=== PATIENT | female | born 1970 | race Caucasian/White ===

== ENCOUNTER 2016-08-06 13:33 | Emergency (ER) | payer OTHER ==
[~2016-08-06] VITALS: Ht 165.1 cm; Wt 53.5 kg
[2016-08-06] MEDS ORDERED: BUPROPION XL300 MG ORAL (13:42)
[2016-08-06] MEDS ORDERED: CITALOPRAM HBR10 M1 ORAL (13:42)
[2016-08-06 13:54] VITALS: BP 118/68
--- NOTE | 2016-08-06 14:27 | Emergency Room Report ---
History of Present Illness General Chief Complaint: Pain Source: Patient Present Illness HPI 45-year-old female presents to emergency Department complaining of pain which is 2/10 in severity in the posterior left calf muscle times one day. Patient [place] felt a pop, pt reports instantly having pain and was unable to bear weight. Patient denies previous injury to this extremity denies bruising reports mild swelling reports tenderness to palpation in addition to pain with putting weight on the toe since she is able to walk with full weight on the heel. Denies numbness tingling or loss of sensation or gross motor movements of the extremities, incontinence of bowel or bladder. Denies CP, Palpitations, LOC, AMS, dizziness, Changes in Vision, Sensation, paresthesias, or a sudden severe headache. Allergies: Coded Allergies: No Known Allergies (Unverified , 08/06/16) Patient History Past Medical History: see triage record Past Surgical History: none Pertinent Family History: none Last Menstrual Period: about a week ago Now: No Immunizations: UTD Reviewed Nursing Documentation: PMH: Agreed, PSxH: Agreed Nursing Documentation-PMH Past Medical History: No History, Except For History Of Psychiatric Problem: Yes - Depression Review of Systems All Other Systems: negative except mentioned in HPI Physical Exam Vital Signs Date Time Temp Pulse Resp B/P Pulse Ox O2 Delivery O2 Flow Rate FiO2 08/06/16 13:37 98.1 66 16 118/68 98 Room Air Sp02 EP Interpretation: reviewed, normal General Appearance: no apparent distress, alert, GCS 15, non-toxic Head: normocephalic, atraumatic Eyes: bilateral eye PERRL, bilateral eye normal inspection ENT: hearing grossly normal, normal pharynx, no angioedema, normal voice Neck: full range of motion, supple/symm/no masses Respiratory: chest non-tender, lungs clear, normal breath sounds, speaking full sentences Cardiovascular #1: regular rate, rhythm, no edema Rectal: deferred Musculoskeletal: back normal, gait/station normal, normal range of motion, no calf tenderness, swelling - medial calf, no bruising or buldging noted. , other - pain exacerbated with plantar extension of the left foot, no exacerbation with plantar flexion against resistance. , tender - TTP to the left posterior medial calf Neurologic: alert, oriented x3, responsive, motor strength/tone normal, sensory intact, speech normal Psychiatric: judgement/insight normal, memory normal, mood/affect normal, no suicidal/homicidal ideation Reflexes: 4+ ankle (R), 4+ ankle (L) Skin: normal color, no rash, warm/dry, well hydrated Lymphatic: no adenopathy Medical Decision Making PA Attestation Dr. gonzalez is my supervising Physician whom patient management has been discussed with. Diagnostic Impression: Primary Impression: Gastrocnemius tear Qualified Codes: S86.812A - Strain of other muscle(s) and tendon(s) at lower leg level, left leg, initial encounter Additional Impression: Gastrocnemius strain Qualified Codes: S86.112A - Strain of other muscle(s) and tendon(s) of posterior muscle group at lower leg level, left leg, initial encounter ER Course Pt. presents to the ED c/o Left calf pain 2/10 in severity acute onset while [place] the beach. Ddx considered but are not limited to Fracture, dislocation, contusion, Sprain/ Strain/Spasm, DVT. Vital signs: are WNL, pt. is afebrile H&PE are most consistent with Gastrocnemius muscle injury. ORDERS: - X-ray Tib/Fib 2 views - negative for fx, Dislocation, or significant soft tissue injury, per preliminary read in ED by Dr. Palmer ED INTERVENTIONS: - 600mg IBU -pt. is provided with crutches. -Anthony wrap applied to the left calf by RN, Pt. remains neurovascularly intact. DISCHARGE: At this time pt. is stable for d/c to home. Will provide printed patient care instructions, and any necessary prescriptions. Care plan and follow up instructions have been discussed with the patient prior to discharge. Last Vital Signs Date Time Temp Pulse Resp B/P Pulse Ox O2 Delivery O2 Flow Rate FiO2 08/06/16 13:54 98.1 66 16 118/68 98 Room Air Disposition: HOME, SELF-CARE Condition: Stable Scripts Ibuprofen* (MOTRIN*) 600 Mg Tablet 600 MG ORAL THREE TIMES A DAY, #30 TAB 0 Refills Prov: Colleen Gomez 08/06/16 Patient Instructions: Muscle Strain, [id number], Muscle Tear, RICE for Routine Care of Injuries Additional Instructions: Take medications as directed. Follow up with PCP in 3-5 days Return sooner to ED if new symptoms occur, or current symptoms become worse. Colleen Gomez Aug 06, 2016 14:27
[2016-08-06] MEDS ORDERED: IBUPROFEN600 MG ORAL (14:30)
[2016-08-06 14:50] VITALS: BP 115/66
[2016-08-06 15:00] VITALS: BP 115/66
--- NOTE | 2016-08-08 10:15 | Diagnostic Imaging Report ---
Indication: PAIN, patient pulled muscle after running Technique: 2 views of the tibia and fibula Comparison: none Findings: No acute fractures. No dislocations. Joint spaces are preserved. No radiopaque foreign body. Impression: Negative
== END 2016-08-06 15:00 | disposition home or self-care (01) ==
LOC: EMR 14:12
DX: S86.112A Strain of other muscle(s) and tendon(s) of posterior muscle group at lower leg level, left leg, initial encounter (principal); F32.9 Major depressive disorder, single episode, unspecified; X58.XXXA Exposure to other specified factors, initial encounter; Y93.02 Activity, running; Y92.832 Beach as the place of occurrence of the external cause; Y99.8 Other external cause status
CPT/HCPCS: 99283